=== PATIENT | male | born 1970 | race African-American/Black ===

== ENCOUNTER 2018-10-01 21:21 | Emergency (ER) | payer BC, OTHER ==
[~2018-10-01] VITALS: Ht 182.9 cm; Wt 83.9 kg
[~2018-10-01 21:21] MED LIST: HYDR1TAB PO; PENI500T PO; TRAM-21 PO
--- OUTSIDE RECORDS SUMMARY | 2018-10-01 21:26 | XMS REPORT ---
Author Author LIDA SIMS Organization [employer] Address Unknown Phone Unavailable Care Team Providers Care Acid Concentrator Name Role Phone LIDA SIMS CP Unavailable Allergies No Known Allergies Problems Problem Type Condition ICD-9 Code Onset Dates Condition Status Assessment Dental examination V72.2 Active Medications No Known Medications Procedures Procedure Coding System Code Date INTRAORL-PERIAPICAL 1 FILM 56378 CPT-4 D0220 Apr 23, 2015 BITEWING - SINGLE FILM CPT-4 D0270 Apr 23, 2015 LTD ORAL EVALUATION - PROBLEM FOCUS CPT-4 D0140 Apr 23, 2015 Results No Known Results Summary Purpose [employer] Submission
[2018-10-01 23:15] VITALS: BP_SYST 107; BP_SYST 117; BP_SYST 131; BP_DIAS 87; BP_DIAS 88
[2018-10-01] MEDS ORDERED: LACTATED RINGERS 1,000 ML IV ONE (23:38)
[2018-10-01] MEDS ORDERED: HYOSCYAMINE 0.125 MG (LEVSIN) TAB PO ONE (23:45)
[2018-10-01 23:58] LABS: BASOPHILS % (AUTO) 0 % (0-10); EOSINOPHILS % (AUTO) 0 % (0-10); HEMATOCRIT 46 % (40-54); HEMOGLOBIN 15.8 G/DL (13.3-17.7); LYMPHOCYTES # (AUTO) 0.7 X 10^3 (1.0-4.0); LYMPHOCYTES % (AUTO) 5 % (12-44); MEAN CORPUSCULAR HEMOGLOBIN 29 PG (25-34); MEAN CORPUSCULAR HGB CONC 34 G/DL (32-36); MEAN CORPUSCULAR VOLUME 83 FL (80-99); MEAN PLATELET VOLUME 10.2 FL (7.4-10.4); MONOCYTES # (AUTO) 0.6 X 10^3 (0.0-1.0); MONOCYTES % (AUTO) 5 % (0-12); NEUTROPHILS # (AUTO) 11.3 X 10^3 (1.8-7.8); NEUTROPHILS % (AUTO) 90 % (42-75); PLATELET COUNT 272 10^3/uL (130-400); RED CELL DISTRIBUTION WIDTH 14.8 % (10.0-14.5); WHITE BLOOD COUNT 12.6 10^3/uL (4.3-11.0)
[2018-10-02 00:31] LABS: ANISOCYTOSIS SLIGHT; BAND NEUTROPHILS 5 %; BASOPHILS % (MANUAL) 0 %; EOSINOPHILS % (MANUAL) 0 %; LYMPHOCYTES % (MANUAL) 3 %; MONOCYTES % (MANUAL) 2 %; NEUTROPHILS % (MANUAL) 88 %; REACTIVE LYMPHOCYTES 2 %; TOXIC GRANULATION/VACUOLAZATIO 1+
[2018-10-02 00:44] LABS: ALANINE AMINOTRANSFERASE 82 U/L (0-55); ALKALINE PHOSPHATASE 72 U/L (40-136); AMYLASE 122 U/L (25-125); BILIRUBIN,TOTAL 0.8 MG/DL (0.1-1.0); BUN/CREATININE RATIO 15; CALCIUM 10.4 MG/DL (8.5-10.1); CARBON DIOXIDE 23 MMOL/L (21-32); CHLORIDE 103 MMOL/L (98-107); CREATININE SERUM 1.39 MG/DL (0.60-1.30); GFR ESTIMATED > 60; GLUCOSE 116 MG/DL (70-105); LIPASE 13 U/L (8-78); SODIUM 141 MMOL/L (135-145); TOTAL PROTEIN 8.4 GM/DL (6.4-8.2)
[2018-10-02] MEDS ORDERED: LACTATED RINGERS 1,000 ML IV ONE (00:55)
[2018-10-02] MEDS ORDERED: RX-HYOSCYAMINE 0.125 MG SL (LEVSIN) PPK#6 SL STA (01:06)
[2018-10-02] MEDS ORDERED: RX-ONDANSETRON 4 MG ODT (ZOFRAN) PPK #4 PO STA (01:06)
[2018-10-02] MEDS ORDERED: HYOS0.1283 SL (01:09)
[2018-10-02] MEDS ORDERED: ONDA4TAB11 PO (01:09)
--- NOTE | 2018-10-02 01:09 | ED GI ---
General Chief Complaint: Abdominal/GI Problems Stated Complaint: N/V/D,STOMACH CRAMPING Nursing Triage Note: c/o n/v/d x8 since 1430 /p eating shrimp. Sepsis Screen: No Definite Risk Source of Information: Patient Exam Limitations: No Limitations History of Present Illness Date Seen by Provider: Oct 01, 2018 Time Seen by Provider: 23:35 Initial Comments PT ARRIVES VIA POV FROM HOME C/O NAUSEA/VOMITING/DIARRHEA AND GENERALIZED STOMACH CRAMPING SINCE 1400 TODAY HAS VOMITED X 10-12, NOW DRY HEAVES. HAS NOT BEEN ABLE TO KEEP ANYTHING DOWN, EXCEPT HE GOT A SPRITE IN THE WAITING ROOM AND HAS BEEN DRINKING IT AND IT HAS STAYED DOWN HAS HAD DIARRHEA X 8-10 TODAY NO FEVER VOIDING NORMALLY NO SICK CONTACTS STATES HE ATE SEAFOOD LAST PM AT A [employer], AND CONCERNED HE MIGHT HAVE FOOD POISONING PCP; NONE Allergies and Home Medications Allergies Coded Allergies: No Known Allergies (Unverified Allergy, Mild, 08/12/09) Home Medications Hyoscyamine Sulfate 0.125 Mg Tab.subl, 1-2 TAB SL Q4H Prescribed by: DARY MCBRIDE on 10/02/18108 Ondansetron 4 Mg Tab.rapdis, 4 MG PO Q4H Prescribed by: DARY MCBRIDE on 10/02/18108 Patient Home Medication List Home Medication List Reviewed: Yes Review of Systems Review of Systems Constitutional: no symptoms reported Respiratory: No Symptoms Reported Cardiovascular: No Symptoms Reported Gastrointestinal: See HPI, Abdominal Pain, Diarrhea, Nausea, Poor Appetite, Poor Fluid Intake, Vomiting Genitourinary: No Symptoms Reported Musculoskeletal: no symptoms reported Skin: no symptoms reported Psychiatric/Neurological: No Symptoms Reported Endocrine: No Symptoms Reported Hematologic/Lymphatic: No Symptoms Reported Past Jpfxoix-Tejnal-Ivezuh Hx Patient Social History Alcohol Use: Denies Use Recreational Drug Use: No Smoking Status: Never a Smoker Type Used: Smokeless Tobacco 2nd Hand Smoke Exposure: No Recent Foreign Travel: No Contact w/Someone Who Travel: No Recent Infectious Disease Expo: No Recent Hopitalizations: No Immunizations Up To Date Tetanus Booster (TDap): Unknown Seasonal Allergies Seasonal Allergies: No Past Medical History Surgeries: No Respiratory: No Cardiac: No Neurological: No Genitourinary: No Gastrointestinal: No Musculoskeletal: No Endocrine: No HEENT: No Cancer: No Psychosocial: No Integumentary: No Blood Disorders: No Physical Exam Vital Signs Vital Signs - First Documented 10/01/18 23:09 Temp 98.4 Pulse 104 Resp 18 B/P (MAP) 123/91 (102) Pulse Ox 96 O2 Delivery Room Air Capillary Refill : Less Than 3 Seconds Height/Weight/BMI Height: 6'" Weight: 185lbs. oz. 83.796124gs; BMI Method:Stated General Appearance: WD/WN, no apparent distress Neck: normal inspection Respiratory: normal breath sounds, no respiratory distress, no accessory muscle use Cardiovascular: regular rate, rhythm Gastrointestinal: normal bowel sounds, non tender, soft Extremities: normal inspection Back: normal inspection Neurologic/Psychiatric: epidemiologist II-XII nml as tested, no motor/sensory deficits, alert, normal mood/affect, oriented x 3 Skin: normal color (PT IS BLACK), warm/dry Progress/Results/Core Measures Results/Orders Lab Results Laboratory Tests Test 10/01/18 23:45 10/02/18 01:15 Range/Units White Blood Count 12.6 H 4.3-11.0 10^3/uL Red Blood Count 5.54 4.35-5.85 10^6/uL Hemoglobin 15.8 13.3-17.7 G/DL Hematocrit 46 40-54 % Mean Corpuscular Volume 83 80-99 FL Mean Corpuscular Hemoglobin 29 25-34 PG Mean Corpuscular Hemoglobin Concent 34 32-36 G/DL Red Cell Distribution Width 14.8 H 10.0-14.5 % Platelet Count 272 130-400 10^3/uL Mean Platelet Volume 10.2 7.4-10.4 FL Neutrophils (%) (Auto) 90 H 42-75 % Lymphocytes (%) (Auto) 5 L 12-44 % Monocytes (%) (Auto) 5 0-12 % Eosinophils (%) (Auto) 0 0-10 % Basophils (%) (Auto) 0 0-10 % Neutrophils # (Auto) 11.3 H 1.8-7.8 X 10^3 Lymphocytes # (Auto) 0.7 L 1.0-4.0 X 10^3 Monocytes # (Auto) 0.6 0.0-1.0 X 10^3 Eosinophils # (Auto) 0.0 0.0-0.3 10^3/uL Basophils # (Auto) 0.0 0.0-0.1 10^3/uL Neutrophils % (Manual) 88 % Lymphocytes % (Manual) 3 % Monocytes % (Manual) 2 % Eosinophils % (Manual) 0 % Basophils % (Manual) 0 % Band Neutrophils 5 % Reactive Lymphocytes 2 % Toxic Granulation 1+ Anisocytosis SLIGHT Sodium Level 141 135-145 MMOL/L Potassium Level 4.0 3.6-5.0 MMOL/L Chloride Level 103 98-107 MMOL/L Carbon Dioxide Level 23 21-32 MMOL/L Anion Gap 15 H 5-14 MMOL/L Blood Urea Nitrogen 21 H 7-18 MG/DL Creatinine 1.39 H 0.60-1.30 MG/DL Estimat Glomerular Filtration Rate > 60 BUN/Creatinine Ratio 15 Glucose Level 116 H 70-105 MG/DL Calcium Level 10.4 H 8.5-10.1 MG/DL Corrected Calcium 8.5-10.1 MG/DL Total Bilirubin 0.8 0.1-1.0 MG/DL Aspartate Amino Transf (AST/SGOT) 138 H 5-34 U/L Alanine Aminotransferase (ALT/SGPT) 82 H 0-55 U/L Alkaline Phosphatase 72 40-136 U/L Total Protein 8.4 H 6.4-8.2 GM/DL Albumin 5.0 H 3.2-4.5 GM/DL Amylase Level 122 25-125 U/L Lipase 13 8-78 U/L Urine Color YELLOW Urine Clarity CLEAR Urine pH 5 5-9 Urine Specific [place] 1.025 H 1.016-1.022 Urine Protein 2+ H NEGATIVE Urine Glucose (UA) NEGATIVE NEGATIVE Urine Ketones 3+ H NEGATIVE Urine Nitrite NEGATIVE NEGATIVE Urine Bilirubin 1+ H NEGATIVE Urine Urobilinogen NORMAL NORMAL MG/DL Urine Leukocyte Esterase 1+ H NEGATIVE Urine RBC (Auto) 1+ H NEGATIVE Urine RBC RARE /HPF Urine WBC RARE /HPF Urine Squamous Epithelial Cells RARE /HPF Urine Crystals NONE /LPF Urine Bacteria TRACE /HPF Urine Casts PRESENT /LPF Urine Hyaline Casts 0-2 H /LPF Urine Mucus MODERATE H /LPF Urine Culture Indicated NO My Orders Orders - DARY MCBRIDE DO Saline Lock/Iv-Start (10/01/18 23:38) Amylase (10/01/18 23:38) Cbc With Automated Diff (10/01/18 23:38) Comprehensive Metabolic Panel (10/01/18 23:38) Lipase (10/01/18 23:38) Ua Culture If Indicated (10/01/18 23:38) Saline Lock/Iv-Start (10/01/18 23:38) Lactated Ringers (Lr 1000 Ml Iv Solution (10/01/18 23:38) Hyoscyamine Sl Tablet (Levsin Sl Tablet) (10/01/18 23:45) Manual Differential (10/01/18 23:45) Stool Culture (10/02/18 00:26) Fecal Wbc (10/02/18 00:26) C Difficile Ag + Toxin A/B. (10/02/18 00:26) Saline Lock/Iv-Start (10/02/18 00:55) Lactated Ringers (Lr 1000 Ml Iv Solution (10/02/18 00:55) Rx-Hyoscyamine Tab (Rx-Levsin Sl) (10/02/18 01:06) Rx-Ondansetron Po (Rx-Zofran Po) (10/02/18 01:06) Medications Given in ED Current Medications Medications Dose Ordered Sig/Brie Route Start Time Stop Time Status Last Admin Dose Admin Hyoscyamine Sulfate 0.25 mg ONCE ONCE PO 10/01/18 23:45 10/01/18 23:46 DC 10/01/18 23:45 0.25 MG Lactated Ringer's 1,000 ml @ 0 mls/hr Q0M ONCE IV 10/01/18 23:38 10/01/18 23:41 DC 10/01/18 23:45 0 MLS/HR Vital Signs/I&O 10/01/18 10/01/18 10/02/18 23:09 23:15 01:20 Temp 98.4 98.1 Pulse 104 91 84 95 110 Resp 18 16 B/P (MAP) 123/91 (102) 131/88 (102) 132/82 (99) 107/87 (94) 117/88 (98) Pulse Ox 96 90 O2 Delivery Room Air Room Air Blood Pressure Mean: 98 Progress Progress Note : Progress Note NO VOMITING DURING ER STAY PT STATES HE IS FEELING MUCH BETTER, NAUSEA IS GONE AND CRAMPING HAS RESOLVED. HAD DIARRHEA X 1 DURING ER STAY. SENT SPECIMEN TO LAB FOR TESTING. Departure Impression Primary Impression: Gastroenteritis Additional Impression: Dehydration Disposition: 01 HOME, SELF-CARE Condition: Improved Departure-Patient Inst. Referrals: NO,LOCAL PHYSICIAN (PCP/Family) Primary Care Physician Patient Instructions: Dehydration, Adult (DC), Viral Gastroenteritis, Adult (DC ) Add. Discharge Instructions: CLEAR LIQUIDS--WATER, BROTH, JELLO, GATORADE BRATS DIET--BANANAS, RICE, APPLESAUCE, TOAST, SALTINES FOLLOW UP WITH YOUR DR ON WEDNESDAY IF NO BETTER RETURN TO ER IF WORSE All discharge instructions reviewed with patient and/or family. Voiced understanding. Scripts Hyoscyamine Sulfate (Levsin-Sl) 0.125 Mg Tab.subl 1-2 TAB SL Q4H for Abdominal Pain, #10 TAB Prov: DARY MCBRIDE DO 10/02/18 Ondansetron (Ondansetron Odt) 4 Mg Tab.rapdis 4 MG PO Q4H for Nausea/Vomiting, #10 TAB Prov: DARY MCBRIDE DO 10/02/18 DARY MCBRIDE DO Oct 02, 2018 01:09
[2018-10-02 01:20] VITALS: BP 132/82
[2018-10-02 01:27] LABS: CLARITY,URINE CLEAR; COLOR,URINE YELLOW; GLUCOSE, URINE (UA) NEGATIVE (NEGATIVE); KETONES,URINE 3+ (NEGATIVE); LEUKOCYTE ESTERASE ,URINE 1+ (NEGATIVE); NITRITE,URINE NEGATIVE (NEGATIVE); PH,URINE 5 (5-9); PROTEIN,URINE 2+ (NEGATIVE); UROBILINOGEN,URINE NORMAL (NORMAL)
[2018-10-02 01:39] LABS: BACTERIA,URINE TRACE /HPF; BILIRUBIN,URINE 1+ (NEGATIVE); HYALINE CASTS, URINE 0-2 /LPF; RBC,URINE RARE /HPF; SQUAMOUS EPITHELIAL CELL,UR RARE /HPF; WBC,URINE RARE /HPF
== END 2018-10-02 01:21 | disposition home or self-care (01) ==
LOC: EDUNIT# 21:21 → ER 21:23
DX: K52.9 Noninfective gastroenteritis and colitis, unspecified (principal); E86.0 Dehydration
CPT/HCPCS: 36415; 80053; 81000; 82150; 83690; 85007; 85027; 87015; 87045; 87046; 87324; 87449; 87899